=== PATIENT | male | born 1995 ===

== ENCOUNTER 2022-03-16 17:02 | Emergency (ER) | payer OTHER | END 2022-03-16 17:30 | LOC: NAV ERS 17:02 | DX: S01.01XA Laceration without foreign body of scalp, initial encounter (principal); I10 Essential (primary) hypertension; W22.8XXA Striking against or struck by other objects, initial encounter; Y93.G1 Activity, food preparation and clean up; Y92.000 Kitchen of unspecified non-institutional (private) residence as the place of occurrence of the external cause; Z79.82 Long term (current) use of aspirin; Z79.899 Other long term (current) drug therapy | CPT/HCPCS: 12001 ==